=== PATIENT | female | born 1935 | race Caucasian/White ===

== ENCOUNTER 2019-11-25 03:33 | Inpatient (IN) | payer MEDICARE, OTHER ==
[~2019-11-25] VITALS: Ht 165.1 cm; Wt 68.8 kg
[~2019-11-25 03:33] MED LIST: BP MED; PROACE100 PO; [UNRECOGNIZED DRUG - REMARK]; [UNRECOGNIZED DRUG - REMARK]
[2019-11-25 04:18] LABS: PCO2 Arterial 41.4 mmHg (35-45); PO2 Arterial 340 mmHg (80-100); pH Blood Arterial 7.28 (7.35-7.45)
[2019-11-25 04:19] LABS: BASOPHILS ABSOLUTE AUTO 0.22 K/mm3 (0.00-0.23); BASOPHILS PERCENT AUTO 1 % (0-2); EOSINOPHILS ABSOLUTE AUTO 0.73 K/mm3 (0.00-0.68); EOSINOPHILS PERCENT AUTO 4 % (0-6); Hemoglobin 16.6 g/dL (11.5-16.0); IMMATURE GRAN ABSOLUTE AUTO 0.13 K/mm3 (0.00-0.10); IMMATURE GRAN PERCENT AUTO 1 % (0-1); LYMPHOCYTES PERCENT AUTO 52 % (21-46); MONOCYTES PERCENT AUTO 5 % (4-13); Mean Corpuscular HGB 30.5 pg (26.0-34.0); Mean Corpuscular HGB Conc 31.3 g/dL (31.5-36.5); Mean Corpuscular Volume 97 fL (80-100); Mean Platelet Volume 11.4 fL (9.1-12.4); NEUTROPHILS ABSOLUTE AUTO 7.22 K/mm3 (1.96-9.15); NEUTROPHILS PERCENT AUTO 38 % (41-73); Platelet Count 271 K/mm3 (150-400); RDW Coefficient Variation 13.1 % (11.7-14.2); RDW Standard Deviation 47.3 fL (35.1-46.3); Red Blood Cell Count 5.44 M/mm3 (3.80-5.20)
[2019-11-25 04:33] LABS: Magnesium, Blood 2.5 mg/dL (1.6-2.4); Troponin I 0.021 ng/mL (0.000-0.040)
[2019-11-25 04:34] LABS: Albumin, Blood 3.8 g/dL (3.4-5.0); Bilirubin, Total 0.5 mg/dL (0.1-1.0); Bun/Creatinine Ratio 15.6 (12.0-20.0); Calcium, Blood 9.2 mg/dL (8.5-10.1); Creatinine, Blood 0.96 mg/dL (0.40-1.00); Globulin, Blood 3.9 g/dL (2.2-4.0); Potassium, Blood 3.8 mmol/L (3.5-5.5); Total Protein, Blood 7.7 g/dL (6.4-8.2)
[2019-11-25] MEDS ORDERED: SLEEP AID (06:30)
--- NOTE | 2019-11-25 06:46 | NUR ---
ADMIT TO ICU 14 AT 0605. PATIENT AWAKE, A&O X4. DENIES PAIN, SOB WITH EXERTION, BIPAP IN PLACE 14/7 FIO2 40%. VSS. LUNGS COARSE T/O. HR SINUS WITH PVC'S, RATE 80'S. NPO STATUS WITH SIPS OF WATER FOR MEDS; TOLERATED WATER. COLON'S WELL, GENERALIZED WEAKNESS. SKIN TEAR TO LEFT WRIST, CHANGED 2X2/COBAN. X2 IV SITES L/R FA'S. TEMP CESAR PATENT, CLEAR YELLOW. NO OTHER CONCERNS NOTED, WILL REPORT OFF TO DAY SHIFT.
--- NOTE | 2019-11-25 08:27 | NUR ---
ASSUMED CARE / DR ALTAMIRANO: REPORT RECEIVED FROM SHEILA Hudson RN. ASSUMED CARE OF THIS PT AT APPROX 0700. ON ASSESSMENT, THE PT IS A&O, PLEASANT & COOPERATIVE. SHE IS WEARING BIPAP, TOLERATING WELL, SETTINGS: 16/7 & 40% FIO2. LS ARE DIM T/O, COARSE IN BASES. PT STS HAVING SOB W/ EXERTION BUT FEELS "OKAY" AT REST. MONITOR SHOWS PACED RHYTHM W/ HR 70s, OCCASIONAL PVCs. PT HAS NO GI COMPLAINTS, TEMP CESAR IS PATENT/ DRAINING. SKIN OVERALL FRAGILE, CDI. PROVIDER IN UNIT, CASE DISCUSSED. ASKED HIM IF PT NEEDS TO REMAIN NPO, HE STS THAT DIET CAN BE ADVANCED TOLERATED. IF RESPIRATORY CONDITION DECLINES, THEN THE PT IS TO BE NPO. F/U ABG TO BE ORDERED. ECHO IS CURRENTLY BEING COMPLETED AT BEDSIDE. WILL CONTINUE TO MONITOR & UPDATE NEEDED.
--- NOTE | 2019-11-25 10:03 | NUR ---
Echocardiogram completed.
[2019-11-25 10:33] LABS: PCO2 Arterial 28.1 mmHg (35-45); PO2 Arterial 114 mmHg (80-100); pH Blood Arterial 7.51 (7.35-7.45)
[2019-11-25 12:40] LABS: Troponin I 0.179 ng/mL (0.000-0.040)
[2019-11-25 17:08] LABS: Source, Urine Catheter
[2019-11-25 17:10] LABS: Bilirubin, Urine Neg (Neg); Blood, Urine 5+ (Neg); Glucose Qualitative, Urine Neg (Neg); Ketones, Urine Neg (Neg); Leukocyte Esterase, Urine 1+ (Neg); Nitrite, Urine Neg (Neg); Protein, Urine 2+ (Neg); Urobilinogen, Urine NORM (Normal)
[2019-11-25 17:19] LABS: Appearance, Urine Hazy (Clear); Color, Urine Yellow (P-Yellow)
[2019-11-25 17:21] LABS: Bacteria Mod /hpf; Red Blood Cells, Urine TNTC /hpf (0-2); Squamous Epithelial Cells Rare /hpf (Few)
--- NOTE | 2019-11-25 18:18 | NUR ---
SHIFT SUMMARY: NO ACUTE CHANGES SINCE PRIOR UDPATES. PT REMAINS A&O, PLEASANT & COOPERATIVE. LS ARE DIM T/O, SLIGHT COARSENESS NOTED TO BILAT BASES. PT ON 3L NC W/ O2 SATS > 92%. MONITOR SHOWS PACED RHYTHM W/ HR 70s, OCCASIONAL PVCs, BP STABLE. PT HAS NO GI COMPLAINTS, IS TOLERATING PO INTAKE WELL. TEMP CESAR PATENT/ DRAINING CLEAR-YELLOW URINE. CALL FROM [employer] [employer], REQUESTING UA THAT WAS ORDERED ON PLACEMENT OF CESAR CATHETER IN ED, STS URINE SPEC WAS NOT RECEIVED FROM ED NURSE. SPECIMEN SENT BY THIS RN. SKIN OVERALL CDI. WILL CONTINUE TO MONITOR & REPORT OFF TO ONCOMING RN.
--- NOTE | 2019-11-25 20:00 | NUR ---
ASSUMED CARE OF PT AT 1915. REPORT RECEIVED. PT PRESENTS IN BED. ALERT AND ORIENTED. IN NO APPARENT DISTRESS. PT PLEASANT AND COOPERATIVE WITH CARE AND ASSESSMENT. STATES THAT SHE IS FEELING MUCH BETTER SINCE ADMIT, BUT FEELS VERY TIRED. COMPLIANT WITH NASAL CANNULA. MAINTAINS OXYGEN SATURATIONS > 90 PERCENT. PT'S SON CALLS FOR UPDATE. THIS GIVEN, AND THEN PHONE CALL SENT INTO PT'S ROOM. SHE HAS CONVERSATION WITH HER SON, WILL REVIEW CHART AND PLAN OF CARE FOR THIS PT.
[2019-11-25 20:48] LABS: Troponin I 0.148 ng/mL (0.000-0.040)
--- NOTE | 2019-11-25 22:50 | NUR ---
PT RESTING IN BED AT THIS TIME. HAS ACCEPTED TURN IN BED. PT DOES MOVE ABOUT ON HER OWN. HAS DENIED WANTING TO HAVE ORAL CARE DONE THIS NIGHT. WANTS TO SLEEP. WILL MONITOR PT'S SATURATIONS CLOSELY AND ADJUST OXYGEN NEEDED.
[2019-11-26 04:10] LABS: Hematocrit 40.1 % (33.0-51.0); Hemoglobin 13.1 g/dL (11.5-16.0); Mean Corpuscular HGB 30.5 pg (26.0-34.0); Mean Corpuscular HGB Conc 32.7 g/dL (31.5-36.5); Mean Corpuscular Volume 94 fL (80-100); Mean Platelet Volume 10.7 fL (9.1-12.4); Platelet Count 186 K/mm3 (150-400); RDW Coefficient Variation 13.2 % (11.7-14.2); RDW Standard Deviation 45.1 fL (35.1-46.3); Red Blood Cell Count 4.29 M/mm3 (3.80-5.20); White Blood Cell Count 13.01 K/mm3 (4.00-11.30)
--- NOTE | 2019-11-26 04:27 | NUR ---
HAVE TITRATED PT'S OXYGEN TO OFF. CURRENTLY MAINTAINING OXYGEN SATURATIONS OF 94-95 PERCENT. NO COMPLAINTS OF DYSPNEA. OF NOTE, PT HAS HAD ONLY 250 ML URINE OUT THIS SHIFT. WILL CONTINUE TO MONITOR.
[2019-11-26 04:31] LABS: Alanine Aminotransfer (ALT/SGP 22 U/L (12-78); Alk Phos 119 U/L (50-136); Anion Gap 7 mmol/L (6-16); Aspartate Aminotrans (AST/SGOT 17 U/L (12-37); Bilirubin, Total 0.9 mg/dL (0.1-1.0); Blood Urea Nitrogen 21 mg/dL (8-24); Bun/Creatinine Ratio 23.8 (12.0-20.0); CO2, Blood 26 mmol/L (21-32); Calcium, Blood 8.9 mg/dL (8.5-10.1); Chloride, Blood 109 mmol/L (98-108); Creatinine, Blood 0.88 mg/dL (0.40-1.00); Glomerular Filtration Rate >60 (60-); Glucose, Blood 93 mg/dL (70-99); Potassium, Blood 3.4 mmol/L (3.5-5.5); Sodium, Blood 142 mmol/L (136-145)
--- NOTE | 2019-11-26 06:45 | NUR ---
PT CONTINUES TO REST IN NO APPARENT DISTRESS. PT CONTINUES ON ROOM AIR WHEREAS SHE MAINTAINS > 90 PERCENT SATURATION. NO DYSPNEA. PT DENIES COMPLAINTS AT THIS TIME. WILL CONTINUE TO MONITOR PT AND WILL REPORT OFF TO ONCOMING RN.
--- NOTE | 2019-11-26 09:00 | NUR ---
ASSUMED CARE: REPORT RECEIVED FROM MERARI Goins RN. ASSUMED CARE OF THIS PT AT APPROX 0700. ON ASSESSMENT, THE PT IS AWAKE, A&O. LS ARE CLEAR T/O, SLIGHTLY DIM IN BASES. PT ON RA W/ O2 SATS > 92%. MONITOR SHOWS PACED RHYTHM W/ HR 60-70s, BP STABLE, OCCASIONAL PVCs. PT HAS NO GI COMPLAINTS & IS TOLERATING PO INTAKE WELL. TEMP CESAR PATENT/ DRAINING DARK YELLOW URINE, DIURESES PER EMAR. SKIN OVERALL CDI, MEPITEL ONE DRESSING PLACED TO SKIN TEAR ON L WRIST. WILL CONTINUE TO MONITOR & UPDATE NEEDED.
--- NOTE | 2019-11-26 15:00 | NUR ---
DR BEAR / UPDATE: PROVIDER HAS BEEN AT BEDSIDE THIS AFTERNOON TO RIKI PT. NEW MEDICATIONS & THEIR PURPOSES HAVE BEEN DISCUSSED. PT REQUESTS HELP FINDING PCP SHE DOES NOT CURRENTLY HAVE ONE. IT IS ALSO DISCUSSED THAT SHE WILL HAVE A GAMING DIRECTOR APPOINTMENT AN OUTPATIENT, R/T NEW DX CHF. EDUCATION REGARDING NEW MEDICATIONS & POTASSIUM SUPPLEMENTATION R/T NEW DIURETICS HAVE BEEN ADDED TO DISCHARGE INTERVENTION.
--- NOTE | 2019-11-26 17:56 | NUR ---
SHIFT SUMMARY: NO ACUTE CHANGES SINCE PRIOR UPDATES. PT REMAINS A&O, PLEASANT & COOPERATIVE. LS ARE CLEAR T/O, PT ON RA W/ O2 SATS > 92%. MONITOR SHOWS PACED RHYTHM W/ HR 60-70s, BP STABLE. PT HAS NO CURRENT GI COMPLAINTS, TEMP CESAR PATENT/ DRAINING. DIURESING WELL. SKIN CONDITION OVERALL UNCHANGED, DRESSING TO L WRIST IS CDI. PT HAS BEEN ASSIGNED RM [id number] FOR TX NOW THAT SHE IS MED W/ TELE STATUS. WILL CONTINUE TO MONITOR & REPORT OFF TO MED FLOOR RN ASSUMING CARE.
--- NOTE | 2019-11-26 18:40 | NUR ---
TRANSFER TO MEDICAL FLOOR: REPORT HAS BEEN GIVEN TO RENNY Sorto RN TO ASSUME CARE OF PT. PT TAKEN VIA WC TO RM 339 BY YAHAIRA BEEBE. ALL BELONGINGS & CHART HAVE BEEN TAKEN UP W/ PT.
[2019-11-27 05:34] LABS: Anion Gap 6 mmol/L (6-16); Blood Urea Nitrogen 25 mg/dL (8-24); Bun/Creatinine Ratio 28.4 (12.0-20.0); CO2, Blood 26 mmol/L (21-32); Calcium, Blood 8.9 mg/dL (8.5-10.1); Chloride, Blood 110 mmol/L (98-108); Creatinine, Blood 0.88 mg/dL (0.40-1.00); Glomerular Filtration Rate >60 (60-); Glucose, Blood 88 mg/dL (70-99); Potassium, Blood 3.8 mmol/L (3.5-5.5); Sodium, Blood 142 mmol/L (136-145)
--- NOTE | 2019-11-27 06:03 | NUR ---
SHIFT SUMMARY A/O, ABLE TO MAKE NEEDS KNOWN. COOPERATIVE WITH CARE. CALLS AND ANSWERS QUESTIONS APPROPRIATELY. NO C/O PAIN/DISCOMFORT. RECIEVED SHOWER LAST NIGHT. DID NOT APPEAR TO REST MUCH OVERNIGHT. CESAR SECURED AND DRAINING TO GRAVITY. TELEMETRY RUNNING PACED @ 65 /c OCCASIONAL PVC's PER PCU [employer]. VSS/AFEBRILE. NO ACUTE CHANGES NOTED OVERNIGHT. BED IN LOWEST POSITION. CALL LIGHT AND BELONGINGS WITHIN REACH. WCTM. REPORT TO ONCOMING RN.
--- NOTE | 2019-11-27 11:33 | NUR ---
V-TACH OF 7 BEATS RECEIVED CALL FROM [facility] THAT PATIENT HAD A SHORT BOUT OF V-TACH OF 7 BEATS. PATIENT IS SLEEPING AND RESTING IN BED COMFORTABLY UPON ASSESSMENT, DENIES C/P, SOB, DIZZINESS. WILL CONTINUE TO MONITOR
--- NOTE | 2019-11-27 13:37 | NUR ---
Called Dr. Eid's office @ [phone] to request records for patient. L/M with answering service to give to test desk trouble locator.
[2019-11-27] MEDS ORDERED: LOSA25 PO (13:53)
[2019-11-27] MEDS ORDERED: FURO20 PO (13:53)
[2019-11-27] MEDS ORDERED: SPIR25 PO (13:54)
[2019-11-27] MEDS ORDERED: METO25 PO (13:54)
[2019-11-27] MEDS ORDERED: POTCHL20ER PO (13:55)
--- NOTE | 2019-11-27 14:32 | NUR ---
No medical records received from Dr. Juárez's office. This RN called again and spoke with motel front desk clerk personnel which she forwarded me to the records keeper. L/M on voicemail RE faxing over patient's records.
--- NOTE | 2019-11-27 15:56 | NUR ---
Medical records received from Dr. Juárez's office. These are placed in patient's chart.
--- NOTE | 2019-11-27 15:57 | NUR ---
Shift Summary A/Ox4, pleasant and cooperative with care. Denies pain and SOB. Up in room with SBA. Calls for needs and answers questions appropriately. Tele: Paced 70's. Discharging to home. Transported by son via personal vehicle. Referrals made to [facility] Roxanne Arriaga [facility] NURSE and [facility] with Nikki Ricketts [facility]ACT[facility] NURSE. Appointment scheduled with Nikki; patient to schedule appointment with Roxanne. Medical records requested from Dr. Eid and in chart. Reviewed heart failure instructions with patient (fluid restrictions, daily weight and reporting parameters, and low salt diet). Medications were also reviewed and faxed to [facility]. Patient verbalized understanding and did not have any questions at this time. Personal belongings bagged by patient and sent home. Bladder training completed and was patient able to feel fullness of bladder and voided w/o complications. IV and tele removed. Patient will be escorted by PHYLICIA Desir with all belongings via w/c.
== END 2019-11-27 16:22 | disposition home or self-care (01) | DRG 291 ==
LOC: ER 03:33 → MEDS 06:05 → ICUW 06:05 → MEDS 11-26 18:37 → ENPENDDIS 11-27 11:24 → MEDS 11-27 16:22
PROVIDERS: Emergency Medicine; Internal Medicine; ADMIT Internal Medicine
PROC: 5A09357 Assistance with Respiratory Ventilation, Less than 24 Consecutive Hours, Continuous Positive Airway Pressure (ICD-10-PCS; principal; 2019-11-25)
DX: I11.0 Hypertensive heart disease with heart failure (principal); J96.01 Acute respiratory failure with hypoxia; I24.8 Other forms of acute ischemic heart disease; E87.2 Acidosis; I16.1 Hypertensive emergency; I50.9 Heart failure, unspecified; Z95.810 Presence of automatic (implantable) cardiac defibrillator; E87.6 Hypokalemia; Z86.73 Personal history of transient ischemic attack (TIA), and cerebral infarction without residual deficits; R73.9 Hyperglycemia, unspecified; Z20.828 Contact with and (suspected) exposure to other viral communicable diseases
CPT/HCPCS: 36415; 36600; 51702; 71045; 80048; 80053; 81001; 82550; 82803; 82947; 83036; 83735; 83880; 84484; 85025; 85027; 87086; 93005; 93010; 93306; 94660; 96365-59; 96375-59; 99285-25; A9270; A9270-GY; J1650; J1940; U0003

== ENCOUNTER 2020-09-11 05:46 | Day surgery (SDC) | payer MEDICARE, OTHER ==
[~2020-09-11] VITALS: Ht 157.5 cm; Wt 69.0 kg
[~2020-09-11 05:46] MED LIST changes: +FURO20 PO; +LOSA25 PO; +METO25 PO; +POTCHL20ER PO; +SLEEP AID; +SPIR25 PO
--- NOTE | 2020-09-11 09:55 | NUR ---
PT AMBULATES TO RESTROOM AND BACK WITHOUT DIFF. VSS. NADN.
--- NOTE | 2020-09-11 10:40 | NUR ---
PT AMBULATES TO RESTROOM WITHOUT DIFF. NADN. VSS.
--- NOTE | 2020-09-11 11:00 | NUR ---
PT VERBALIZES UNDERSTANDING WRITTEN AND VERBAL ORDERS. VSS. NADN. PT IV DC'D. CATH INTACT. PRESSURE DSG APPLIED. PT L SIDED CHEST WALL SITE REMAINS CLEAR. NO BLEEDING NOTED. PT DC TO HOME VIA SON BY LEONARDO.
== END 2020-09-11 11:00 | disposition home or self-care (01) ==
LOC: MHTC 05:46
DX: I25.5 Ischemic cardiomyopathy (principal); Z45.010 Encounter for checking and testing of cardiac pacemaker pulse generator [battery]; I11.0 Hypertensive heart disease with heart failure; I50.9 Heart failure, unspecified; Z95.810 Presence of automatic (implantable) cardiac defibrillator; Z88.8 Allergy status to other drugs, medicaments and biological substances
CPT/HCPCS: 33264; 99152; 99153; C1781; C1882; J0690; J1644; J2250; J3010; J7030; J7040

== ENCOUNTER → 2022-05-11 | Outpatient (CLI) | payer MEDICARE ==
[2022-05-11 13:35] LABS: BASOPHILS PERCENT AUTO 1 % (0-2); EOSINOPHILS ABSOLUTE AUTO 0.51 K/mm3 (0.00-0.68); EOSINOPHILS PERCENT AUTO 5 % (0-6); Hematocrit 41.2 % (33.0-51.0); Hemoglobin 13.5 g/dL (11.5-16.0); IMMATURE GRAN ABSOLUTE AUTO 0.02 K/mm3 (0.00-0.10); IMMATURE GRAN PERCENT AUTO 0 % (0-1); LYMPHOCYTES ABSOLUTE AUTO 2.25 K/mm3 (0.84-5.20); LYMPHOCYTES PERCENT AUTO 23 % (21-46); MONOCYTES ABSOLUTE AUTO 0.97 K/mm3 (0.16-1.47); MONOCYTES PERCENT AUTO 10 % (4-13); Mean Corpuscular HGB 31.1 pg (26.0-34.0); Mean Corpuscular HGB Conc 32.8 g/dL (31.5-36.5); Mean Corpuscular Volume 95 fL (80-100); Mean Platelet Volume 10.8 fL (9.1-12.4); NEUTROPHILS ABSOLUTE AUTO 5.89 K/mm3 (1.96-9.15); NEUTROPHILS PERCENT AUTO 61 % (41-73); Platelet Count 242 K/mm3 (150-400); RDW Standard Deviation 45.5 fL (35.1-46.3); Red Blood Cell Count 4.34 M/mm3 (3.80-5.20); White Blood Cell Count 9.74 K/mm3 (4.00-11.30)
[2022-05-11 14:34] LABS: Alanine Aminotransfer (ALT/SGP 29 U/L (12-78); Albumin, Blood 3.9 g/dL (3.4-5.0); Albumin/Globulin Ratio 1.1 (0.8-1.8); Alk Phos 208 U/L (50-136); Anion Gap 8 mmol/L (6-16); Aspartate Aminotrans (AST/SGOT 17 U/L (12-37); Bilirubin, Total 0.9 mg/dL (0.1-1.0); Blood Urea Nitrogen 17 mg/dL (8-24); Bun/Creatinine Ratio 17.4 (12.0-20.0); CHOL/HDL RATIO 2.1; CO2, Blood 23 mmol/L (21-32); Calcium, Blood 9.9 mg/dL (8.5-10.1); Chloride, Blood 111 mmol/L (98-108); Cholesterol 117 mg/dL (50-200); Creatinine, Blood 0.98 mg/dL (0.40-1.00); Globulin, Blood 3.5 g/dL (2.2-4.0); Glomerular Filtration Rate 57 (60-); Glucose, Blood 94 mg/dL (70-99); HDL Cholesterol 55 mg/dL (>39); LDL/HDL RATIO 0.8; Low Density Lipoprotein Chol 43 mg/dL (0-110); Potassium, Blood 4.3 mmol/L (3.5-5.5); Sodium, Blood 142 mmol/L (136-145); Thyroid Stimulating Hormone 0.692 uIU/mL (0.360-4.800); Thyroxine (T4) 10.9 ug/dL (4.8-13.9); Total Protein, Blood 7.4 g/dL (6.4-8.2); Triglycerides 95 mg/dL (30-160); Very Low Density Lipoprot Chol 19 mg/dL (6-32)
== END | disposition home or self-care (01) ==
LOC: LAB SHORT 10:52 → LAB 10:52
PROVIDERS: Family Medicine
DX: I10 Essential (primary) hypertension (principal); E03.9 Hypothyroidism, unspecified; E78.2 Mixed hyperlipidemia
CPT/HCPCS: 80053; 80061; 84436; 84443; 85025

== ENCOUNTER 2023-03-12 00:25 | Emergency (ER) | payer MEDICARE, OTHER ==
[~2023-03-12] VITALS: Ht 162.6 cm; Wt 65.8 kg
[2023-03-12 00:55] LABS: BASOPHILS ABSOLUTE AUTO 0.02 K/mm3 (0.00-0.23); BASOPHILS PERCENT AUTO 0 % (0-2); EOSINOPHILS ABSOLUTE AUTO 0.02 K/mm3 (0.00-0.68); EOSINOPHILS PERCENT AUTO 0 % (0-6); Hematocrit 39.4 % (33.0-51.0); Hemoglobin 13.4 g/dL (11.5-16.0); IMMATURE GRAN ABSOLUTE AUTO 0.03 K/mm3 (0.00-0.10); IMMATURE GRAN PERCENT AUTO 1 % (0-1); LYMPHOCYTES ABSOLUTE AUTO 1.65 K/mm3 (0.84-5.20); LYMPHOCYTES PERCENT AUTO 26 % (21-46); MONOCYTES ABSOLUTE AUTO 0.74 K/mm3 (0.16-1.47); MONOCYTES PERCENT AUTO 12 % (4-13); Mean Corpuscular HGB 30.7 pg (26.0-34.0); Mean Corpuscular Volume 90 fL (80-100); Mean Platelet Volume 10.8 fL (9.1-12.4); NEUTROPHILS ABSOLUTE AUTO 3.85 K/mm3 (1.96-9.15); NEUTROPHILS PERCENT AUTO 61 % (41-73); Platelet Count 141 K/mm3 (150-400); RDW Coefficient Variation 12.8 % (11.7-14.2); RDW Standard Deviation 42.6 fL (35.1-46.3); Red Blood Cell Count 4.36 M/mm3 (3.80-5.20); White Blood Cell Count 6.31 K/mm3 (4.00-11.30)
[2023-03-12 01:16] LABS: Albumin, Blood 3.2 g/dL (3.4-5.0); Albumin/Globulin Ratio 1.2 (0.8-1.8); Bilirubin, Total 0.6 mg/dL (0.1-1.0); Bun/Creatinine Ratio 22.4 (12.0-20.0); Creatinine, Blood 1.07 mg/dL (0.40-1.00); Globulin, Blood 2.6 g/dL (2.2-4.0); Potassium, Blood 3.4 mmol/L (3.5-5.5); Total Protein, Blood 5.8 g/dL (6.4-8.2)
[2023-03-12 01:46] LABS: Source, Urine Clean Catch
[2023-03-12 01:49] LABS: Appearance, Urine Clear (Clear); Bilirubin, Urine Neg (Neg); Blood, Urine Neg (Neg); Color, Urine Yellow (P-Yellow); Glucose Qualitative, Urine Neg (Neg); Ketones, Urine Neg (Neg); Leukocyte Esterase, Urine Neg (Neg); Nitrite, Urine Neg (Neg); Protein, Urine 1+ (Neg); Specific Gravity, Urine 1.015 (1.003-1.022); Urobilinogen, Urine NORM (Normal)
[2023-03-12 02:00] VITALS: BP 146/101
[2023-03-12 02:02] LABS: Influenza A, PCR NEGATIVE (NEGATIVE); Influenza B, PCR NEGATIVE (NEGATIVE); Resp Syncytial Virus, PCR NEGATIVE (NEGATIVE)
[2023-03-12 03:06] LABS: SARS-Cov-2 (COVID-19) PCR, MMC POSITIVE (NEGATIVE)
== END 2023-03-12 04:00 | disposition home or self-care (01) ==
LOC: ER 00:25
PROVIDERS: Emergency Medicine
DX: U07.1 COVID-19 (principal); I11.0 Hypertensive heart disease with heart failure; I50.9 Heart failure, unspecified; Z86.73 Personal history of transient ischemic attack (TIA), and cerebral infarction without residual deficits; Z88.6 Allergy status to analgesic agent; Z87.891 Personal history of nicotine dependence
CPT/HCPCS: 0241U; 71045; 80053; 84484; 85025; 93005; 93010; 96360; 99285-25; J7030

== ENCOUNTER → 2025-02-13 | Outpatient (CLI) | payer MEDICARE, OTHER ==
[2025-02-13 11:35] LABS: BASOPHILS ABSOLUTE AUTO 0.09 K/mm3 (0.00-0.23); BASOPHILS PERCENT AUTO 1 % (0-2); EOSINOPHILS ABSOLUTE AUTO 0.63 K/mm3 (0.00-0.68); EOSINOPHILS PERCENT AUTO 5 % (0-6); Hematocrit 39.9 % (33.0-51.0); Hemoglobin 13.4 g/dL (11.5-16.0); IMMATURE GRAN ABSOLUTE AUTO 0.04 K/mm3 (0.00-0.10); IMMATURE GRAN PERCENT AUTO 0 % (0-1); LYMPHOCYTES ABSOLUTE AUTO 2.70 K/mm3 (0.84-5.20); LYMPHOCYTES PERCENT AUTO 23 % (21-46); MONOCYTES ABSOLUTE AUTO 0.93 K/mm3 (0.16-1.47); MONOCYTES PERCENT AUTO 8 % (4-13); Mean Corpuscular HGB Conc 33.6 g/dL (31.5-36.5); Mean Corpuscular Volume 91 fL (80-100); NEUTROPHILS ABSOLUTE AUTO 7.49 K/mm3 (1.96-9.15); NEUTROPHILS PERCENT AUTO 63 % (41-73); NRBC ABSOLUTE 0.00 K/mm3 (0.00-0.02); NRBC Auto 0.0 /100 WBC (0.0-0.2); Platelet Count 208 K/mm3 (150-400); RDW Coefficient Variation 12.5 % (11.7-14.2); RDW Standard Deviation 41.5 fL (35.1-46.3)
[2025-02-13 11:41] LABS: Anion Gap 15.0 mmol/L (6-16); Blood Urea Nitrogen 21.0 mg/dL (8-24); CO2, Blood 26.0 mmol/L (21-32); Calcium, Blood 9.9 mg/dL (8.5-10.1); Chloride, Blood 103.0 mmol/L (98-108); Creatinine, Blood 1.34 mg/dL (0.40-1.00); Glucose, Blood 101.0 mg/dL (70-99); Magnesium, Blood 2.0 mg/dL (1.6-2.4); Potassium, Blood 4.6 mmol/L (3.5-5.5); Sodium, Blood 139.0 mmol/L (136-145)
== END | disposition home or self-care (01) ==
LOC: LAB 11:20 → LAB SHORT 11:20
PROVIDERS: Physician Assistant
DX: R82.998 Other abnormal findings in urine (principal); R53.1 Weakness
CPT/HCPCS: 80048; 83735; 85025; 87086